=== PATIENT | male | born 1940 | race African-American/Black ===

== ENCOUNTER 2019-09-07 13:07 | Emergency (ER) | payer OTHER, MEDICAID ==
[~2019-09-07] VITALS: Ht 175.3 cm; Wt 80.0 kg
[2019-09-07 15:01] VITALS: BP 140/92
== END 2019-09-07 17:25 | disposition left against medical advice (07) ==
LOC: ER 13:07
DX: Z53.21 Procedure and treatment not carried out due to patient leaving prior to being seen by health care provider (principal)

== ENCOUNTER 2019-09-12 11:19 | Emergency (ER) | payer OTHER, MEDICAID ==
[~2019-09-12] VITALS: Ht 172.7 cm; Wt 77.5 kg
[2019-09-12 12:34] LABS: BASOPHILS % 0.8 % (0.0-2.0); EOSINOPHILS % 2.4 % (0.0-5.0); HEMATOCRIT. 26.2 % (42.0-52.0); HEMOGLOBIN. 8.5 g/dL (14.0-18.0); LYMPHOCYTES % 13.9 % (20.0-50.0); MEAN CORPUSCULAR HEMOGLOBIN 24.2 pg (28.0-32.0); MEAN CORPUSCULAR VOLUME 74.6 fL (80.0-94.0); MEAN PLATELET VOLUME 7.1 fl (7.4-10.4); MONOCYTES % 4.5 % (2.0-8.0); NEUTROPHILS % 78.4 % (40.0-76.0); PLATELET 350 x1000/uL (130-400); RED BLOOD CELL COUNT 3.52 mill/uL (4.7-6.1); RED CELL DISTRIBUTION WIDTH 17.5 % (11.6-14.6)
[2019-09-12 12:41] LABS: CHLORIDE 110 mEq/L (98-107)
[2019-09-12 12:50] LABS: CLARITY URINE CLEAR (CLEAR); COLOR URINE YELLOW (YELLOW); KETONES URINE TRACE (NEGATIVE); LEUKOCYTE ESTERASE URINE NEGATIVE (NEGATIVE); NITRITE URINE NEGATIVE (NEGATIVE); OCCULT BLOOD URINE NEGATIVE (NEGATIVE); PROTEIN URINE NEGATIVE (NEGATIVE); SPECIFIC GRAVITY URINE 1.024 (1.005-1.030); UROBILINOGEN URINE 0.2 E.U./dL (0.2-1.0)
[2019-09-12 17:01] VITALS: BP 142/77
== END 2019-09-12 17:03 | disposition home or self-care (01) ==
LOC: ER 11:19
DX: R53.82 Chronic fatigue, unspecified (principal); I10 Essential (primary) hypertension; G89.29 Other chronic pain; M25.511 Pain in right shoulder; D50.9 Iron deficiency anemia, unspecified; M19.90 Unspecified osteoarthritis, unspecified site; R35.0 Frequency of micturition; R06.02 Shortness of breath; Z98.890 Other specified postprocedural states
CPT/HCPCS: 36415; 71045; 80048; 81003; 85025; 93005; 99285